=== PATIENT | female | born 1925 | race Caucasian/White ===

== ENCOUNTER 2016-05-19 00:45 | Emergency (ER) | payer MEDICARE ==
[2016-05-19 01:16] LABS: BASOPHIL % 0.4 % (0-2); PLATELET COUNT 238 x10^3mcL (130-400); RED CELL DISTRIBUTION WIDTH 13.2 % (11.5-14.5)
[2016-05-19 01:25] LABS: CALCIUM 9.6 mg/dL (8.5-10.1); CARBON DIOXIDE 25.5 mmol/L (21-32); CHLORIDE SERUM 102 mmol/L (98-107); CREATININE SERUM 0.6 mg/dL (0.6-1.0); GLUCOSE SERUM 152 mg/dL (74-106); POTASSIUM SERUM 3.9 mmol/L (3.5-5.1); SODIUM SERUM 137 mmol/L (136-145)
[2016-05-19 01:30] LABS: ALBUMIN 4.3 g/dL (3.4-5.0); ALKALINE PHOSPHATASE 79 U/L (46-116); ALT/SGPT 26 U/L (14-59); AST/SGOT 14 U/L (15-37); BILIRUBIN TOTAL 0.64 mg/dL (0.20-1.00); CHOLESTEROL 164 mg/dL (<200); CHOLESTEROL/HDL RATIO 3.2; HDL CHOLESTEROL 52 mg/dL (40-60); LIPASE 98 IU/L (73-393); TOTAL PROTEIN, SERUM 7.9 g/dL (6.4-8.2); TRIGLYCERIDES 85 mg/dL (<150)
[2016-05-19 01:40] LABS: FREE T4 1.58 ng/dL (0.76-1.46); FREE THYROXINE INDEX 4.1 ug/dL (1.4-4.5); T4(THYROXINE) 12.9 ug/dL (4.7-13.3)
[2016-05-19 02:06] LABS: T3 TOTAL 0.99 ng/mL
[2016-05-19 02:40] LABS: UA SPECIFIC GRAVITY 1.015 (1.005-1.035); microscopic required? YES; urine erythrocyte TRACE (NEGATIVE)
[2016-05-19 05:38] VITALS: BP 165/84
== END 2016-05-19 05:38 | disposition short-term general hospital (02) ==
LOC: ED 00:45
PROVIDERS: Specialist
DX: R07.89 Other chest pain (principal); I10 Essential (primary) hypertension; E78.00 Pure hypercholesterolemia, unspecified; E03.9 Hypothyroidism, unspecified
CPT/HCPCS: 83880; 84439; J3490; J7030